=== PATIENT | male | born 1960 | race Caucasian/White ===

== ENCOUNTER 2016-12-03 16:12 | Outpatient (CLI) | payer BC ==
--- NOTE | 2016-12-04 09:43 | XRAY Report ---
TWO-VIEW CHEST: 12/03/2016 CLINICAL INDICATION: Abnormal PPD. FINDINGS: Frontal and lateral views of the chest demonstrate a normal cardiac silhouette. The lungs are clear. No effusion or pneumothorax is present. Mid thoracic compression fractures are incident ally noted. IMPRESSION: NO EVIDENCE OF ACTIVE TUBERCULOSIS. JOB #: [id number] EXT JOB #:[id number]
== END 2016-12-03 16:13 | disposition home or self-care (01) ==
LOC: DI 16:12
DX: R76.11 Nonspecific reaction to tuberculin skin test without active tuberculosis (principal)
CPT/HCPCS: 71020

== ENCOUNTER 2018-06-04 13:10 | Outpatient (CLI) | payer BC ==
--- NOTE | 2018-06-05 01:38 | XRAY Report ---
Reason: BACK PAIN, LUMBAR WITH RADICULOPATHY,HIP JOINT SHEN Procedure Date: 06/04/2018 Accession Number: [id number] / [id number] Procedure: XR - Hips 2V BILAT CPT Code: FULL RESULT: EXAM: BILATERAL HIP RADIOGRAPHY EXAM DATE: 06/04/2018 01:51 PM. CLINICAL HISTORY: BACK PAIN, LUMBAR WITH RADICULOPATHY,HIP JOINT SHEN. COMPARISON: HIP BILAT 09/22/2012 10:46 AM. TECHNIQUE: 2 views each. FINDINGS: Bones: Normal. No fractures or bone lesion. Right Hip: Normal. No dislocation. The hip joint space is preserved. Left Hip: Moderate left hip degenerative joint disease with moderate osteophytes. No dislocation. Mild to moderate bilateral sacroiliac joint sclerosis, left greater than right. Soft Tissues: Unremarkable. IMPRESSION: The right hip appears within normal limits. Moderate left hip degenerative joint disease. See above. [facility]
--- NOTE | 2018-06-05 22:27 | XRAY Report ---
Reason: Back pain, lumbar, with radiculopathy Procedure Date: 06/04/2018 Accession Number: [id number] / [id number] Procedure: XR - Lumbar Spine 2 View CPT Code: FULL RESULT: EXAM: LUMBOSACRAL SPINE RADIOGRAPHY EXAM DATE: 06/04/2018 01:50 PM. CLINICAL HISTORY: Lumbar back pain with radiculopathy. COMPARISONS: MRI LUMBAR SPINE W/O 04/01/2016 8:54 AM. TECHNIQUE: 3 views. FINDINGS: Alignment: Mild left convex curvature centered at L4-L5 measuring approximately 6 degrees. No spondylolisthesis. Bones: Five uqb-htf-ldlbktj lumbar vertebral bodies are present. No fractures or bone lesions. Disks: Severe disk height loss and endplate degenerative change at L1-L2. Mild L5 superior anterior endplate osteophytosis. Mild disk height loss and endplate degenerative change at L5-S1. Facets: Mild facet arthropathy in the lower lumbar spine. Sacroiliac Joints: Unremarkable. Soft Tissues: Normal. The visualized bowel gas pattern is normal. IMPRESSION: 1. Mild left convex curvature centered at L4-L5. 2. Multilevel degenerative disk disease, most Severe at L1-L2, Similar Appearance to Prior MRI. 3. No acute bony abnormality. [facility]
== END 2018-06-04 13:11 | disposition home or self-care (01) ==
LOC: DI 13:10
PROVIDERS: ATTEND Nurse Practitioner
DX: M16.12 Unilateral primary osteoarthritis, left hip (principal); M25.551 Pain in right hip; D17.1 Benign lipomatous neoplasm of skin and subcutaneous tissue of trunk; M51.16 Intervertebral disc disorders with radiculopathy, lumbar region; M43.8X6 Other specified deforming dorsopathies, lumbar region; R10.2 Pelvic and perineal pain
CPT/HCPCS: 72100; 73521

== ENCOUNTER 2018-06-13 12:09 | Outpatient (CLI) | payer BC ==
--- NOTE | 2018-06-13 20:14 | MRI Report ---
Reason: BACK PAIN,LUMBAR WITH RADICULOPATHY,HIP JOINT PAIN Procedure Date: 06/13/2018 Accession Number: [id number] / [id number] Procedure: MRI - Lumbar Spine W/O CPT Code: FULL RESULT: EXAM: MRI LUMBAR SPINE WITHOUT CONTRAST EXAM DATE: 06/13/2018 01:25 PM. CLINICAL HISTORY: Back pain, lumbar with radiculopathy, hip joint pain. COMPARISON: LUMBAR SPINE W/O 04/01/2016 8:54 AM. TECHNIQUE: Multiplanar, multisequence T1-weighted and fluid-sensitive sequences of the lumbar spine from T12 to S1 without contrast. Other: None. FINDINGS: Spinal Canal: The conus terminates at L1-L2. The conus medullaris and cauda equina are unremarkable. Alignment: No scoliosis or spondylolisthesis. Bone Marrow: Five bjm-dzk-qkktwzm lumbar vertebral bodies are assumed. No gross fractures or bone lesions. No bone marrow replacement. Disk Levels/Facets: T12-L1: Unremarkable. L1-L2: Severe disk degeneration. Inferior L1 vertebral body endplate Schmorl's node. Diffuse disk bulge. Mild left foraminal stenosis. Negative for central spinal canal stenosis. L2-L3: Posterior right paracentral 2 mm disk protrusion with mild ventral effacement of the thecal sac. Negative for spinal canal stenosis or foraminal stenosis. Preservation of disk height. Facet joints are within normal limits. L3-L4: Negative for spinal canal stenosis or foraminal stenosis. L4-L5: Central posterior 2 mm disk protrusion. Posterior element hypertrophy. Negative for spinal canal stenosis. The right intervertebral foramen is negative for stenosis. Mild left foraminal stenosis from facet hypertrophy and 2 mm foraminal disk protrusion. L5-S1: Central posterior 2 mm disk protrusion. The left intervertebral foramen is negative for stenosis. Mild right foraminal stenosis from disk degeneration and foraminal disk bulge which is unchanged as compared to the MRI 04/01/2016. Severe right L5-S1 disk degeneration. Facet joints are within normal limits. Musculature: Normal. No edema or fatty atrophy. Other: The partially visualized retroperitoneum is unremarkable. IMPRESSION: 1. Inferior L1 vertebral body endplate Schmorl's node with marrow edema is new as compared to the MRI lumbar spine 04/01/2016. Severe L1-L2 disk degeneration. 2. Negative for central spinal canal stenosis. 3. Mild right L5-S1 foraminal stenosis from disk degeneration and 2 mm foraminal disk bulge, which contacts the inferior aspect of the exiting the right L5 nerve root without impingement. No change as compared to the MRI lumbar spine 03/24/2016. 4. Mild left foraminal stenosis L4-L5 and mild left foraminal stenosis L1-L2. Comment: The following findings are so common in adults without low back pain that while we report their presence, they must be interpreted with caution and in the context of the clinical situation. (Reference Idaliak et al, Spine 2001) Prevalence of findings in patients without low back pain: Disk degeneration (any evidence): 92% Disk desiccation/T2 signal loss: 83% Disk height loss: 56% Disk bulge: 64% Disk protrusion: 32% Annular tear/high intensity zone: 38% RAD[facility]
== END 2018-06-13 12:10 | disposition home or self-care (01) ==
LOC: DI 12:09
PROVIDERS: ATTEND Nurse Practitioner
DX: M51.26 Other intervertebral disc displacement, lumbar region (principal); M51.27 Other intervertebral disc displacement, lumbosacral region; M51.46 Schmorl's nodes, lumbar region; M47.9 Spondylosis, unspecified; M51.37 Other intervertebral disc degeneration, lumbosacral region; M48.061 Spinal stenosis, lumbar region without neurogenic claudication; M48.07 Spinal stenosis, lumbosacral region; M51.36 Other intervertebral disc degeneration, lumbar region
CPT/HCPCS: 72148

== ENCOUNTER 2018-06-20 12:13 | Outpatient (CLI) | payer BC ==
--- NOTE | 2018-06-21 09:09 | MRI Report ---
Reason: BACK PAIN,LUMBAR WITH RADICULOPATHY,HIP JOIN PAIN, Procedure Date: 06/20/2018 Accession Number: [id number] / [id number] Procedure: MRI - Hip LT W/O CPT Code: FULL RESULT: EXAM: LEFT HIP MRI WITHOUT CONTRAST EXAM DATE: 06/20/2018 01:01 PM. CLINICAL HISTORY: BACK PAIN,LUMBAR WITH RADICULOPATHY,HIP JOIN PAIN. COMPARISON: Left hip radiographs 06/04/2018. TECHNIQUE: Multiplanar, multisequence T1-weighted and fluid-sensitive, small vlmtm-mj-bvsw sequences of the hip and large xcxzw-wf-jsah sequences of the pelvis without contrast. Other: None. FINDINGS: Bones: No fractures. No osseous lesions. No evidence of avascular necrosis or femoral neck stress fracture. Left Hip: No acetabular retroversion. Decreased femoral head-neck offset bilaterally. Small left hip effusion. No intra-articular bodies are visualized. Full thickness cartilage loss over a broad area of the central femoral head and medial acetabulum with underlying subchondral edema and cystic change at the medial acetabulum. Marginal osteophyte formation at the femoral head. Limited evaluation of the acetabular labrum on this nonarthrographic examination. No para labral cyst. Ligamentum teres is not well visualized. Other Joints: There is bilateral sacroiliac joint osteoarthritis. No erosions or subchondral edema. Mild right hip osteoarthritis, with small marginal osteophytes but no subchondral edema or sclerosis. Musculature: No edema or fatty atrophy. The gluteus medius and minimus tendons are normal. The visualized hamstring tendons are normal. The ischiofemoral space is normal. Pelvic Cavity: The visualized viscera are unremarkable. No lymphadenopathy. No free fluid in the pelvis. Other: The visualized sciatic nerves are unremarkable. No bursitis. The subcutaneous tissues are unremarkable. IMPRESSION: 1. Severe left hip osteoarthritis, with severe axial joint space loss, subchondral edema and cystic change at the medial acetabulum, and marginal osteophyte formation. Small left hip effusion. 2. Mild right hip osteoarthritis and bilateral sacroiliac joint osteoarthritis. [facility] MUSCULOSKELETAL RADIOLOGY SECTION
== END 2018-06-20 12:14 | disposition home or self-care (01) ==
LOC: DI 12:13
PROVIDERS: ATTEND Nurse Practitioner
DX: M16.0 Bilateral primary osteoarthritis of hip (principal); M47.818 Spondylosis without myelopathy or radiculopathy, sacral and sacrococcygeal region; M54.16 Radiculopathy, lumbar region; D17.1 Benign lipomatous neoplasm of skin and subcutaneous tissue of trunk

== ENCOUNTER 2018-08-09 12:30 | Outpatient (CLI) | payer OTHER, BC ==
[2018-08-09] MEDS ORDERED: IOTHALAMATE MEGLUMINE 50 ML VIAL ONE (12:47)
[2018-08-09] MEDS ORDERED: BUFFERED LIDOCAINE 10 ML SYRINGE ONE (12:47)
[2018-08-09] MEDS ORDERED: BUFFERED LIDOCAINE 10 ML SYRINGE IU ONE ×2 (13:44)
[2018-08-09] MEDS ORDERED: ROPIVACAINE 0.2% PF 20 ML AMPULE SUBQ ONE ×2 (13:44)
[2018-08-09] MEDS ORDERED: TRIAMCINOLONE 40 MG/ML VIAL IM ONE (13:44)
[2018-08-09] MEDS ORDERED: IOTHALAMATE MEGLUMINE 50 ML VIAL IVP ONE ×2 (13:44)
--- NOTE | 2018-08-09 15:21 | XRAY Report ---
Reason: HIP JOINT PAIN, LEFT Procedure Date: 08/09/2018 Accession Number: [id number] / [id number] Procedure: FL - Inj/Aspiration Major Joint CPT Code: FULL RESULT: EXAM: LEFT HIP STEROID INJECTION WITH FLUOROSCOPIC GUIDANCE EXAM DATE: 08/09/2018 01:40 PM. CLINICAL HISTORY: Hip joint pain, left. COMPARISON: HIP BILAT 09/22/2012 10:46 AM. TECHNIQUE: The risks, benefits, and alternatives of the procedure were discussed with the patient. All questions were answered. Written and verbal consent were obtained. The hip joint was marked under fluoroscopy and prepped and draped in a sterile manner. Local anesthesia was performed with 1% lidocaine. A 22-gauge needle was then inserted into the hip joint. Positioning was tested with a small quantity of contrast, approximately 2 mL. Afterwards, 6 mL of a solution containing 0.05% ropivacaine and 40 mg Kenalog was then injected. The needle was removed without immediate complication. Other: None. Fluoroscopy Time: 0.25 minutes. Number of Images: 19. FINDINGS: Bones and Joints: No fracture or subluxation. Injection: Fluoroscopic images demonstrate needle placement and contrast in the hip joint. IMPRESSION: Successful fluoroscopically guided steroid injection of the hip. [facility]
== END 2018-08-09 12:31 | disposition home or self-care (01) ==
LOC: DI 12:30
PROVIDERS: ATTEND Orthopaedic Surgery
DX: M25.552 Pain in left hip (principal)
CPT/HCPCS: 20610; Q9961

== ENCOUNTER 2019-07-02 10:59 | Outpatient (CLI) | payer BC ==
--- NOTE | 2019-07-02 12:44 | Ultrasound Report ---
Reason: ABDOMINAL AORTIC ANEURYSM Procedure Date: 07/02/2019 Accession Number: [id number] / [id number] Procedure: US - Retroperitoneal Limited CPT Code: Final Report FULL RESULT: EXAM: AORTIC DOPPLER ULTRASOUND EXAM DATE: 07/02/2019 11:00 AM. CLINICAL HISTORY: Abdominal aortic aneurysm incidentally noted on MR lumbar spine. COMPARISON: LUMBAR SPINE W/O 06/13/2018 12:40 PM. TECHNIQUE: Real-time sonographic imaging of retroperitoneal vascular structures, including color-flow, Doppler flow and spectral analysis was performed by the r d manager. Multiple customer care representative static images were saved for review. FINDINGS: Aorta: Evaluation of the abdominal aorta was limited by patient body habitus and overlying bowel gas. There is fusiform aneurysmal dilatation of the distal abdominal aorta measuring 3.0 x 2.8 cm in the transverse plane. There is heterogeneous material within the aneurysm which may represent thrombus or dissection flap. Aorta: Proximal: Sagittal AP 2.4 cm. Mid: Transverse 1.9 x 1.9 cm. Distal: Transverse 3.0 x 2.8 cm. Plaque visualized: Yes. Iliac Vessels: Not visualized due to overlying bowel gas and patient body habitus. Other: None. IMPRESSION: 1. Fusiform aneurysmal dilatation of the distal abdominal aorta measuring 3.0 x 2.8 cm in the transverse plane. There is possible thrombus or dissection flap within the aneurysm. Evaluation is limited by patient body habitus and overlying bowel gas. Recommend further evaluation with CT angiogram of the abdominal aorta. 2. The bilateral iliac arteries are not visualized due to overlying bowel gas and patient body habitus. RAD[facility]
== END 2019-07-02 11:00 | disposition home or self-care (01) ==
LOC: DI 10:59
PROVIDERS: ATTEND Nurse Practitioner
DX: I71.4 Abdominal aortic aneurysm, without rupture (principal)
CPT/HCPCS: 76775

== ENCOUNTER 2019-07-13 10:42 | Outpatient (CLI) | payer BC ==
[2019-07-13 11:23] LABS: ALBUMIN/GLOBULIN RATIO 1.4 (1.0-2.2); BILIRUBIN,TOTAL 0.9 mg/dL (0.2-1.0); CALCIUM 8.7 mg/dL (8.5-10.3); TOTAL PROTEIN 6.9 g/dL (6.7-8.2)
[2019-07-13] MEDS ORDERED: IOVERSOL 320 100 ML VIAL IVP ONE ×2 (11:30→13:46)
--- NOTE | 2019-07-14 10:07 | CT Report ---
Reason: ABDOMINAL AORTIC ANEURYSM Procedure Date: 07/13/2019 Accession Number: [id number] / [id number] Procedure: CT - ANGIO ABDOMEN/PELVIS W CPT Code: Final Report FULL RESULT: EXAM: CT ANGIOGRAM ABDOMEN AND PELVIS WITH CONTRAST EXAM DATE: 07/13/2019 11:55 AM. CLINICAL HISTORY: Abdominal aortic aneurysm. COMPARISONS: ULTRASOUND RETROPERITONEAL LIMITED 07/02/2019 11:00 AM. MRI LUMBAR SPINE W/O 06/13/2018 12:40 PM. TECHNIQUE: Routine helical CT angiogram imaging was performed through the abdomen and pelvis in the arterial phase. IV contrast: 120 mL Optiray 320. Enteric contrast: No. Reconstructions: Coronal, sagittal, and 3D MIP reconstructions. In accordance with CT protocol optimization, one or more of the following dose reduction techniques were utilized for this exam: automated exposure control, adjustment of mA and/or KV based on patient size, or use of iterative reconstructive technique. FINDINGS: Vasculature: There is fusiform aneurysmal dilatation of the infrarenal abdominal aorta measuring up to 3.0 x 2.5 cm in the transverse plane (series 4 image 107). There is a partially calcified dissection flap anteriorly. The focal dilatation measures approximately 3.7 cm in craniocaudal dimension (series 10 image 86). The abdominal aorta and iliac arteries are otherwise normal in caliber. There is moderate atherosclerotic calcification of the abdominal aorta. There is mild atherosclerotic calcification of the bilateral common iliac arteries. There is mild atherosclerotic calcification near the origins of the celiac axis and superior mesenteric artery, without significant luminal narrowing. The inferior mesenteric artery is patent. There are 2 right renal arteries and 3 left renal arteries. Lung Bases: Normal. Abdominal Solid Organs: There is diffuse low-attenuation of the liver. No focal hepatic mass identified. There is a right adrenal nodule measuring 2.7 x 1.8 cm (series 4 image 56). Density is near 0 HU. The left adrenal is unremarkable. There are small calcified gallstones within the gallbladder. No CT evidence of acute cholecystitis. The spleen, pancreas, and kidneys are normal in size and demonstrate no masses or abnormal enhancement. Peritoneal Cavity: No free fluid, free air, or acute inflammatory process. No dilated loops of bowel or abnormal colonic stool burden. There is minimal diverticulosis of the descending and sigmoid colon. No evidence of acute diverticulitis. The appendix is well visualized and normal. Pelvic Organs: Partially obscured by streak artifact from left hip arthroplasty hardware. The bladder and visualized pelvic organs are within normal limits. Bones: Left hip arthroplasty hardware is partially visualized. No acute osseous abnormality or bone lesion. Moderate anterior wedge compression deformity of the T8 vertebral body appears unchanged compared to prior 2 view chest radiographs from 12/03/2016. There are mild to moderate multilevel degenerative changes of the lower thoracic and lumbar spine. Other: None. IMPRESSION: 1. There is fusiform aneurysmal dilatation of the infrarenal abdominal aorta measuring up to 3.0 cm in diameter. A partially calcified dissection flap is present. 2. Diffuse hepatic steatosis. 3. Right adrenal nodule measuring up to 2.7 cm with features consistent with a benign adenoma. No imaging follow-up is recommended per consensus recommendations based on imaging criteria. 4. Minimal diverticulosis of the descending and sigmoid colon without evidence of acute diverticulitis. 5. Cholelithiasis. No CT evidence of acute cholecystitis. [facility]
== END 2019-07-13 10:43 | disposition home or self-care (01) ==
LOC: DI 10:42
PROVIDERS: ATTEND Nurse Practitioner
DX: I71.4 Abdominal aortic aneurysm, without rupture (principal); K76.0 Fatty (change of) liver, not elsewhere classified; E27.9 Disorder of adrenal gland, unspecified; K57.30 Diverticulosis of large intestine without perforation or abscess without bleeding; K80.20 Calculus of gallbladder without cholecystitis without obstruction; R73.9 Hyperglycemia, unspecified
CPT/HCPCS: 36415; 74174; 80053; Q9967

== ENCOUNTER 2019-09-28 09:57 | Outpatient (CLI) | payer BC ==
--- NOTE | 2019-09-28 11:29 | XRAY Report ---
PROCEDURE: Chest 2 View X-Ray INDICATIONS: EXERTIONAL SHORT OF BREATH TECHNIQUE: 2 view(s) of the chest. COMPARISON: Chest x-ray examination dated 12.03.16 FINDINGS: Surgical changes and devices: None. Lungs and pleura: No pleural effusions or pneumothorax. Lungs are clear. Mediastinum: Mediastinal contours are normal. Heart size is enlarged. Bones and chest wall: No suspicious bony abnormalities. Soft tissues appear unremarkable. IMPRESSION: 1. Cardiomegaly. 2. No acute process. Reviewed by: Mihai Emanuel MD on 09/28/2019 11:28 AM PDT Approved by: Mihai Emanuel MD on 09/28/2019 11:28 AM PDT Station ID: [id number]
[2019-09-28 11:40] LABS: ALBUMIN 3.8 g/dL (3.2-5.5); ALBUMIN/GLOBULIN RATIO 1.3 (1.0-2.2); BILIRUBIN,TOTAL 0.7 mg/dL (0.2-1.0); CALCIUM 8.9 mg/dL (8.5-10.3); CREATININE 0.9 mg/dL (0.6-1.2); TOTAL PROTEIN 6.8 g/dL (6.7-8.2)
--- NOTE | 2019-09-28 11:41 | Ultrasound Report ---
PROCEDURE: Duplex Ext Veins Left INDICATIONS: SUPERFICIAL THROMBOPHLEBITIS TECHNIQUE: Real-time imaging, as well as color and pulse Doppler interrogation, were performed of the lower extr emity deep veins from the inguinal ligament to the popliteal fossa. COMPARISON: None. FINDINGS: The deep veins are normally compressible, and free of intraluminal thrombus. Color and pu lse Doppler demonstrate normal phasic intraluminal flow. There is normal augmentation response to di stal compression maneuver. IMPRESSION: No evidence of left lower extremity superficial nor deep venous thrombosis. No fluid col lection. Reviewed by: Mihai Emanuel MD on 09/28/2019 11:39 AM PDT Approved by: Mihai Emanuel MD on 09/28/2019 11:39 AM PDT Station ID: [id number]
== END 2019-09-28 09:58 | disposition home or self-care (01) ==
LOC: DI 09:57
PROVIDERS: ATTEND Family Medicine
DX: I80.9 Phlebitis and thrombophlebitis of unspecified site (principal); I51.7 Cardiomegaly; R29.90 Unspecified symptoms and signs involving the nervous system; R73.9 Hyperglycemia, unspecified
CPT/HCPCS: 36415; 71046; 80053

== ENCOUNTER 2019-09-28 15:52 | Outpatient (CLI) | payer BC ==
[2019-09-28] MEDS ORDERED: GADOBUTROL 15 MMOL/15 ML VIAL ONE (16:41)
== END 2019-09-28 15:53 | disposition home or self-care (01) ==
LOC: DI 15:52
PROVIDERS: ATTEND Nurse Practitioner
DX: Z53.9 Procedure and treatment not carried out, unspecified reason (principal)

== ENCOUNTER 2019-10-30 10:47 | Outpatient (CLI) | payer BC ==
--- NOTE | 2019-10-30 12:23 | DEXA Report ---
Reason: OSTEOPOROSIS Procedure Date: 10/30/2019 Accession Number: [id number] / [id number] Procedure: DEX - Dexa Spine and/or Hip CPT Code: Final Report FULL RESULT: PROCEDURE: Dexa Spine and/or Hip INDICATIONS: OSTEOPOROSIS TECHNIQUE: Dual energy x-ray absorptiometry (DXA) was performed on a [employer]. Regions measured are the AP Spine, femoral neck, and if needed forearm. COMPARISON: None. FINDINGS: Lumbar Spine: Bone Mineral Density 1.31 g/cm/cm,T score 1.3, normal Left Hip: Bone Mineral Density 1.191 g/cm/cm,T score 0.6, normal Left Femoral Neck: Bone Mineral Density 1.037 g/cm/cm, T score -0.3, normal (T score greater or equal to -1.0: NORMAL) (T score from -1.1 to -2.4: OSTEOPENIA) (T score less than or equal to -2.5 to: OSTEOPOROSIS) Impression: Normal bone density. Patients with diagnosis of osteoporosis or osteopenia should have regular bone mineral density assessment. For those eligible for Medicare, routine testing is allowed once every 2 years. Testing frequency can be increased for patients who have rapidly progressing disease or for those who are receiving medical therapy to restore bone mass. Reviewed by: Cristina Barnard MD, PhD on 10/30/2019 12:22 PM PDT Approved by: Cristina Barnard MD, PhD on 10/30/2019 12:22 PM PDT Station ID: [id number]
== END 2019-10-30 10:48 | disposition home or self-care (01) ==
LOC: DI 10:47
PROVIDERS: ATTEND Family Medicine
DX: M81.0 Age-related osteoporosis without current pathological fracture (principal)
CPT/HCPCS: 77080

== ENCOUNTER 2020-01-20 16:27 | Outpatient (CLI) | payer BC ==
--- NOTE | 2020-01-20 19:52 | Ultrasound Report ---
PROCEDURE: Testicle INDICATIONS: TESTICULAR PAIN TECHNIQUE: Real-time scanning was performed of the scrotum and testicles, with image documentation. Color and p ulse Doppler interrogation was performed of both testicles. COMPARISON: CT abdomen and pelvis 01/03/2020. Testicular ultrasound 10/27/2011. FINDINGS: Right: Testicle is normal in size at 3.6 x 2.8 x 2.1 cm, and homogenous in echotexture. Small testic ular cyst measuring 0.3 cm, unchanged since 2011. Epididymis is normal in overall size and morphology . Small cyst in the epididymal head measuring 0.8 cm, similar to 2012. Trace hydrocele. No varicocel es. Overlying scrotal skin is normal in thickness. Left: Testicle is normal in size at 4.1 x 2.8 x 2.1 cm, and homogeneous in echotexture. Epididymis is normal in overall size and morphology. No hydrocele or varicoceles. Overlying scrotal skin is no rmal in thickness. Doppler: Color and pulse Doppler demonstrate normal and symmetric arterial flow in both testicles. IMPRESSION: 1. No hyperemia to suggest epididymoorchitis. No absence of blood flow to suggest testicular torsion. 2. No testicular mass. 3. Trace right hydrocele. 4. Small right testicle and epididymal benign cysts are similar to 2012. Reviewed by: Chidi Lin MD on 01/20/2020 7:50 PM PDT Approved by: Chidi Lin MD on 01/20/2020 7:50 PM PDT Station ID: [id number]
== END 2020-01-20 16:28 | disposition home or self-care (01) ==
LOC: DI 16:27
PROVIDERS: ATTEND Nurse Practitioner Family
DX: N43.3 Hydrocele, unspecified (principal); N44.2 Benign cyst of testis; N50.3 Cyst of epididymis
CPT/HCPCS: 76870

== ENCOUNTER 2020-01-30 10:37 | Outpatient (CLI) | payer OTHER, BC ==
--- NOTE | 2020-01-30 16:49 | XRAY Report ---
PROCEDURE: Ankle 3 View RT INDICATIONS: RIGHT ANKLE SPRAIN TECHNIQUE: 3 views of the ankle were acquired. COMPARISON: None FINDINGS: Bones: No fractures or dislocations. Ankle mortise is normally aligned. No suspicious bony lesions . Mild tricompartmental periarticular osteophyte formation. A screw within the cuboid is present. Soft tissues: No tibiotalar joint effusion. Achilles tendon appears normal. IMPRESSION: Osteoarthritis. No acute fracture. No osseous lesion. If symptoms and/or clinical suspic ion for pathology continue, further assessment with repeat plain films, or advanced imaging (e.g., CT , MRI, or bone scan) is recommended for further assessment. Reviewed by: Mihai Emanuel MD on 01/30/2020 4:47 PM PDT Approved by: Mihai Emanuel MD on 01/30/2020 4:47 PM PDT Station ID: [id number]
== END 2020-01-30 23:59 ==
LOC: DI.WCP 10:37
PROVIDERS: ATTEND Physician Assistant Medical
DX: M19.071 Primary osteoarthritis, right ankle and foot (principal)

== ENCOUNTER 2020-06-24 08:00 | Outpatient (CLI) | payer BC ==
[2020-06-24 17:54] LABS: BASOPHILS # (AUTO) 0.1 10^3/uL (0.0-0.1); BASOPHILS % (AUTO) 0.7 %; EOSINOPHILS # (AUTO) 0.2 10^3/uL (0.0-0.7); EOSINOPHILS % (AUTO) 2.1 %; HCT - HEMATOCRIT 48.7 % (42.0-52.0); HGB - HEMOGLOBIN 15.5 g/dL (14.0-18.0); LYMPHOCYTES # (AUTO) 1.1 10^3/uL (1.5-3.5); LYMPHOCYTES % (AUTO) 15.7 %; MEAN CORPUSCULAR HEMOGLOBIN 30.9 pg (27.0-31.0); MEAN CORPUSCULAR HGB CONC 31.8 g/dL (32.0-36.0); MEAN PLATELET VOLUME 10.8 fL (7.4-11.4); MONOCYTES # (AUTO) 0.7 10^3/uL (0.0-1.0); MONOCYTES % (AUTO) 9.2 %; NEUTROPHILS # (AUTO) 5.2 10^3/uL (1.5-6.6); PLT - PLATELET COUNT 233 10^3/uL (130-450); RED BLOOD COUNT 5.02 10^6/uL (4.70-6.10); RED CELL DISTRIBUTION WIDTH 14.2 % (12.0-15.0); WHITE BLOOD COUNT 7.2 x10^3/uL (4.8-10.8)
[2020-06-24 18:09] LABS: ALBUMIN 4.3 g/dL (3.2-5.5); ALBUMIN/GLOBULIN RATIO 1.5 (1.0-2.2); ALKALINE PHOSPHATASE 57 IU/L (42-121); ALT ALANINE AMINOTRANSFERASE 33 IU/L (10-60); AST ASPARTATE AMINOTRANSFERASE 22 IU/L (10-42); BUN - BLOOD UREA NITROGEN 15 mg/dL (6-20); CALCIUM 8.9 mg/dL (8.5-10.3); CARBON DIOXIDE - CO2 30 mmol/L (21-32); CHLORIDE 102 mmol/L (101-111); CHOL/HDL RATIO 3.6 (<5.0); CHOLESTEROL 157 mg/dL; CREATININE 0.9 mg/dL (0.6-1.2); GFR - MDRD 86 (>89); GLUCOSE 162 mg/dL (70-100); HDL CHOLESTEROL 44 mg/dL; LDL CHOLESTEROL,CALCULATED 93 mg/dL; LDL/HDL RATIO 2.1 (<3.6); POTASSIUM 4.1 mmol/L (3.5-5.0); SODIUM 140 mmol/L (135-145); TOTAL PROTEIN 7.1 g/dL (6.7-8.2); TRIGLYCERIDES 99 mg/dL; VLDL CHOLESTEROL 20 mg/dL
[2020-06-24 18:19] LABS: THYROID STIMULATING HORMONE 1.45 uIU/mL (0.34-5.60)
[2020-06-24 19:50] LABS: ESTIMATED AVERAGE GLUCOSE 143 mg/dL (70-100); HEMOGLOBIN A1c% 6.6 % (4.27-6.07)
== END 2020-06-24 23:59 | disposition home or self-care (01) ==
LOC: LAB.WCP 08:00
PROVIDERS: ATTEND Nurse Practitioner
DX: D64.9 Anemia, unspecified (principal); I48.91 Unspecified atrial fibrillation; R73.9 Hyperglycemia, unspecified; R03.0 Elevated blood-pressure reading, without diagnosis of hypertension
CPT/HCPCS: 36415; 80053; 80061; 83036; 83721; 84443; 85025

== ENCOUNTER 2020-08-08 12:00 | Outpatient (CLI) | payer OTHER, BC ==
--- NOTE | 2020-08-08 17:06 | CT Report ---
PROCEDURE: CHEST WO INDICATIONS: LUNG NODULE TECHNIQUE: Noncontrast 5 mm thick sections acquired from the pulmonary apices to the posterior costophrenic angl es. 7 mm thick coronal and sagittal MIP reformats were then acquired. For radiation dose reduction, the following was used: automated exposure control, adjustment of mA and/or kV according to patient size. COMPARISON: CT abdomen and pelvis 01/03/2020 FINDINGS: Image quality: Excellent. Lungs and pleura: Approximately 3 mm right lower lobe pulmonary nodule is unchanged (series 4 image 2 05). An additional tiny pulmonary nodule in the left lower lobe on series 4 image 2:30 measuring appr oximately 3 mm is also unchanged. No additional pulmonary nodule or mass. No pleural effusions or pne umothorax. Central and peripheral airways are patent and normal in caliber. Pleural spaces are fatmata r. Mediastinum: Normal heart size. No pericardial effusion. Partial enlarged mediastinal or hilar lymph node. Coronary calcifications. Normal caliber thoracic aorta and main pulmonary trunk. Aortic atheros clerosis. Bones and chest wall: No suspicious bony lesions. No vertebral body compression fractures. No axil olivier or supraclavicular adenopathy by size criteria. The thyroid is normal in size. Abdomen: Unchanged appearance of right adrenal adenoma. The included upper abdominal visceral struct ures are otherwise unremarkable. IMPRESSION: Unchanged small 3 mm pulmonary nodules. No additional follow-up needed. Reviewed by: Jozef Glasgow MD on 08/08/2020 5:05 PM PDT Approved by: Jozef Glasgow MD on 08/08/2020 5:05 PM PDT Station ID: [id number]
== END 2020-08-08 12:01 | disposition home or self-care (01) ==
LOC: DI 12:00
PROVIDERS: ATTEND Nurse Practitioner Family
DX: R91.8 Other nonspecific abnormal finding of lung field (principal)

== ENCOUNTER 2020-11-29 08:00 | Outpatient (CLI) | payer BC ==
[2020-11-29 18:40] LABS: CALCIUM 9.2 mg/dL (8.5-10.3); CREATININE 0.8 mg/dL (0.6-1.2); POTASSIUM 4.3 mmol/L (3.5-5.0)
== END 2020-11-29 23:59 | disposition home or self-care (01) ==
LOC: LAB.WCP 08:00
PROVIDERS: ATTEND Family Medicine
DX: R06.09 Other forms of dyspnea (principal); I48.91 Unspecified atrial fibrillation
CPT/HCPCS: 36415; 80048; 83880; 84484

== ENCOUNTER 2021-07-05 12:41 | Outpatient (CLI) | payer BC ==
[2021-07-05 16:55] LABS: BASOPHILS # (AUTO) 0.1 10^3/uL (0.0-0.1); BASOPHILS % (AUTO) 0.9 %; EOSINOPHILS # (AUTO) 0.1 10^3/uL (0.0-0.7); EOSINOPHILS % (AUTO) 1.8 %; HCT - HEMATOCRIT 45.7 % (42.0-52.0); HGB - HEMOGLOBIN 15.5 g/dL (14.0-18.0); LYMPHOCYTES # (AUTO) 1.4 10^3/uL (1.5-3.5); LYMPHOCYTES % (AUTO) 21.3 %; MEAN CORPUSCULAR HEMOGLOBIN 30.9 pg (27.0-31.0); MEAN CORPUSCULAR HGB CONC 33.9 g/dL (32.0-36.0); MEAN CORPUSCULAR VOLUME 91.2 fL (80.0-94.0); MEAN PLATELET VOLUME 10.8 fL (7.4-11.4); MONOCYTES # (AUTO) 0.6 10^3/uL (0.0-1.0); MONOCYTES % (AUTO) 9.5 %; NEUTROPHILS # (AUTO) 4.3 10^3/uL (1.5-6.6); NEUTROPHILS % (AUTO) 66.3 %; PLT - PLATELET COUNT 236 10^3/uL (130-450); RED BLOOD COUNT 5.01 10^6/uL (4.70-6.10); RED CELL DISTRIBUTION WIDTH 13.2 % (12.0-15.0); WHITE BLOOD COUNT 6.5 x10^3/uL (4.8-10.8)
[2021-07-05 17:11] LABS: MICROALBUM/CREATININE RATIO,UR 3.3 ug/mg (<30.0); MICROALBUMIN,URINE 1.2 mg/dL (0-300.0)
[2021-07-05 17:14] LABS: CHOL/HDL RATIO 3.4 (<5.0); CHOLESTEROL 134 mg/dL; HDL CHOLESTEROL 40 mg/dL; LDL CHOLESTEROL,CALCULATED 73 mg/dL; LDL/HDL RATIO 1.8 (<3.6); TRIGLYCERIDES 106 mg/dL; VLDL CHOLESTEROL 21 mg/dL
[2021-07-05 17:20] LABS: T4 (THYROXINE) 6.47 ug/dL (6.09-12.23)
[2021-07-05 17:24] LABS: THYROID STIMULATING HORMONE 1.23 uIU/mL (0.34-5.60)
[2021-07-05 21:46] LABS: ESTIMATED AVERAGE GLUCOSE 163 mg/dL (70-100); HEMOGLOBIN A1c% 7.3 % (4.27-6.07)
== END 2021-07-05 12:42 | disposition home or self-care (01) ==
LOC: LAB.N 12:41
PROVIDERS: ATTEND Family Medicine
DX: E11.9 Type 2 diabetes mellitus without complications (principal); Z12.5 Encounter for screening for malignant neoplasm of prostate
CPT/HCPCS: 36415; 80061; 82043; 82570; 83036; 83721; 84153; 84436; 84443; 85025

== ENCOUNTER 2021-12-13 14:53 | Outpatient (CLI) | payer BC ==
--- NOTE | 2021-12-13 16:22 | XRAY Report ---
PROCEDURE: Shoulder 3 View LT INDICATIONS: STRAIN OF UNSPECIFIED MUSCLE,FASCIA AND TENDON AT TECHNIQUE: 3 views of the shoulder were acquired. COMPARISON: None. FINDINGS: Bones: No acute fractures or dislocations. No suspicious bony lesions. Visualized ribs appear inta ct. Mild degenerative changes of the acromioclavicular joint. Minimal spurring of the inferior gleno id. Soft tissues: A nonspecific 2.3 cm oval calcification is seen projecting over the upper arm along the superficial margin of the deltoid muscle. Given the superficial location, this may represent an inje ction granuloma versus the sequela of prior soft tissue trauma. IMPRESSION: No acute osseous abnormality. Nonspecific soft tissue calcification along the superficial margin of t he distal deltoid muscle may represent an injection granuloma or the sequela of prior trauma versus l ess likely a calcified soft tissue mass. Consider radiographic follow-up in 3-6 months. Reviewed by: Gerardo Scanlon MD on 12/13/2021 3:21 PM JORDON Approved by: Gerardo Scanlon MD on 12/13/2021 3:21 PM JORDON [id number]
== END 2021-12-13 14:54 | disposition home or self-care (01) ==
LOC: DI 14:53
PROVIDERS: ATTEND Physician Assistant
DX: S46.912A Strain of unspecified muscle, fascia and tendon at shoulder and upper arm level, left arm, initial encounter (principal)

== ENCOUNTER 2022-01-31 15:48 | Outpatient (CLI) | payer BC ==
[2022-01-31 19:14] LABS: ALBUMIN 4.1 g/dL (3.2-5.5); ALBUMIN/GLOBULIN RATIO 1.5 (1.0-2.2); ALKALINE PHOSPHATASE 57 IU/L (42-121); ALT ALANINE AMINOTRANSFERASE 37 IU/L (10-60); AST ASPARTATE AMINOTRANSFERASE 24 IU/L (10-42); BILIRUBIN,TOTAL 1.2 mg/dL (0.2-1.0); BUN - BLOOD UREA NITROGEN 15 mg/dL (6-20); CARBON DIOXIDE - CO2 28 mmol/L (21-32); CHLORIDE 100 mmol/L (101-111); CHOL/HDL RATIO 3.4 (<5.0); CHOLESTEROL 136 mg/dL; CREATININE 0.8 mg/dL (0.6-1.2); GFR - MDRD 98 (>89); GLUCOSE 144 mg/dL (70-100); HDL CHOLESTEROL 40 mg/dL; LDL CHOLESTEROL,CALCULATED 73 mg/dL; LDL/HDL RATIO 1.8 (<3.6); POTASSIUM 3.9 mmol/L (3.5-5.0); SODIUM 138 mmol/L (135-145); TOTAL PROTEIN 6.9 g/dL (6.7-8.2); TRIGLYCERIDES 116 mg/dL; VLDL CHOLESTEROL 23 mg/dL
[2022-01-31 19:25] LABS: THYROID STIMULATING HORMONE 1.05 uIU/mL (0.34-5.60)
[2022-02-01 12:06] LABS: ESTIMATED AVERAGE GLUCOSE 171 mg/dL (70-100); HEMOGLOBIN A1c% 7.6 % (4.27-6.07)
== END 2022-01-31 15:49 | disposition home or self-care (01) ==
LOC: LAB.N 15:48
PROVIDERS: ATTEND Physician Assistant Medical
DX: E11.9 Type 2 diabetes mellitus without complications (principal)
CPT/HCPCS: 36415; 80053; 80061; 83036; 83721; 84443

== ENCOUNTER 2022-04-30 08:00 | Outpatient (CLI) | payer BC ==
--- NOTE | 2022-05-01 10:31 | XRAY Report ---
PROCEDURE: Cervical Spine Complete INDICATIONS: NECK PAIN TECHNIQUE: 7 view(s) of the cervical spine were acquired. COMPARISON: None. FINDINGS: Mild to moderate multifactorial degenerative changes throughout the cervical spine with dis c height loss and facet hypertrophy and uncovertebral hypertrophy to varying degrees. Findings most p ronounced at C5 and C5 and C5-C6. Oblique views demonstrate mild osseous neural foraminal narrowing a t C4 to C5, C5-C6, and C6-C7. IMPRESSION: Mild to moderate multilevel multifactorial degenerative changes worst from C4-C5 through C6- C7. Reviewed by: Jozef Glasgow MD on 05/01/2022 10:30 AM PST Approved by: Jozef Glasgow MD on 05/01/2022 10:30 AM PST Station ID: [id number]
== END 2022-04-30 08:01 | disposition home or self-care (01) ==
LOC: DI.WOS 08:00
PROVIDERS: ATTEND Orthopaedic Surgery
DX: M47.812 Spondylosis without myelopathy or radiculopathy, cervical region (principal)

== ENCOUNTER 2023-01-08 14:27 | Outpatient (CLI) | payer BC ==
[2023-01-08 17:52] LABS: BASOPHILS # (AUTO) 0.1 10^3/uL (0.0-0.1); BASOPHILS % (AUTO) 0.8 %; EOSINOPHILS # (AUTO) 0.1 10^3/uL (0.0-0.7); EOSINOPHILS % (AUTO) 1.4 %; HGB - HEMOGLOBIN 16.3 g/dL (14.0-18.0); LYMPHOCYTES # (AUTO) 1.7 10^3/uL (1.5-3.5); LYMPHOCYTES % (AUTO) 22.1 %; MEAN CORPUSCULAR HEMOGLOBIN 29.5 pg (27.0-31.0); MEAN CORPUSCULAR VOLUME 92.4 fL (80.0-94.0); MEAN PLATELET VOLUME 11.4 fL (7.4-11.4); MONOCYTES # (AUTO) 0.6 10^3/uL (0.0-1.0); MONOCYTES % (AUTO) 7.9 %; NEUTROPHILS # (AUTO) 5.3 10^3/uL (1.5-6.6); NEUTROPHILS % (AUTO) 67.5 %; PLT - PLATELET COUNT 241 10^3/uL (130-450); RED BLOOD COUNT 5.52 10^6/uL (4.70-6.10); RED CELL DISTRIBUTION WIDTH 12.8 % (12.0-15.0); WHITE BLOOD COUNT 7.9 x10^3/uL (4.8-10.8)
[2023-01-08 18:23] LABS: THYROID STIMULATING HORMONE 0.93 uIU/mL (0.34-5.60)
[2023-01-08 18:24] LABS: ALBUMIN 4.3 g/dL (3.2-5.5); ALBUMIN/GLOBULIN RATIO 1.6 (1.0-2.2); ALKALINE PHOSPHATASE 59 IU/L (42-121); ALT ALANINE AMINOTRANSFERASE 33 IU/L (10-60); AST ASPARTATE AMINOTRANSFERASE 25 IU/L (10-42); BILIRUBIN,TOTAL 0.9 mg/dL (0.2-1.0); BUN - BLOOD UREA NITROGEN 15 mg/dL (6-20); CALCIUM 9.4 mg/dL (8.5-10.3); CARBON DIOXIDE - CO2 26 mmol/L (21-32); CHLORIDE 102 mmol/L (101-111); CHOL/HDL RATIO 3.3 (<5.0); CHOLESTEROL 128 mg/dL; CREATININE 0.9 mg/dL (0.6-1.3); GFR - MDRD 85 (>89); GLUCOSE 159 mg/dL (74-104); HDL CHOLESTEROL 39 mg/dL; LDL CHOLESTEROL,CALCULATED 54 mg/dL; LDL/HDL RATIO 1.4 (<3.6); POTASSIUM 4.3 mmol/L (3.5-4.5); SODIUM 137 mmol/L (135-145); TRIGLYCERIDES 176 mg/dL (48-352); VLDL CHOLESTEROL 35 mg/dL
[2023-01-08 20:49] LABS: ESTIMATED AVERAGE GLUCOSE 163 mg/dL (70-100); HEMOGLOBIN A1c% 7.3 % (4.27-6.07)
== END 2023-01-08 14:28 | disposition home or self-care (01) ==
LOC: LAB.N 14:27
PROVIDERS: ATTEND Family Medicine
DX: I11.0 Hypertensive heart disease with heart failure (principal); I50.1 Left ventricular failure, unspecified; E11.9 Type 2 diabetes mellitus without complications; Z86.79 Personal history of other diseases of the circulatory system; L40.9 Psoriasis, unspecified; I48.91 Unspecified atrial fibrillation
CPT/HCPCS: 36415; 80053; 80061; 83036; 83721; 84443; 85025

== ENCOUNTER 2023-02-01 14:21 | Outpatient (CLI) | payer BC ==
--- NOTE | 2023-02-01 16:55 | XRAY Report ---
PROCEDURE: Hips 2V BILAT INDICATIONS: PAIN IN RIGHT HIP TECHNIQUE: 2 views of the each hip were acquired. COMPARISON: None. FINDINGS: Bones: [Arthroplasty changes are present. The components appear in normal alignment. No periprosthet ic lucency. Mild uniform joint space loss in the right femoral acetabular joint. No significant spurr ing. No acute fractures. There is fixation hardware in the lower lumbosacral spine. Soft tissues: No suspicious soft tissue calcifications or masses. IMPRESSION: 1. Intact left hip prosthesis. 2. Mild right hip degeneration. Reviewed by: Halina Bland MD on 02/01/2023 4:54 PM PDT Approved by: Halina Bland MD on 02/01/2023 4:54 PM PDT Station ID: [id number]
== END 2023-02-01 14:22 | disposition home or self-care (01) ==
LOC: DI 14:21
PROVIDERS: ATTEND Physician Assistant Medical
DX: M16.11 Unilateral primary osteoarthritis, right hip (principal); Z96.642 Presence of left artificial hip joint

== ENCOUNTER 2023-05-29 12:28 | Outpatient (CLI) | payer BC ==
[2023-05-29 19:26] LABS: CALCIUM 9.3 mg/dL (8.5-10.3); CREATININE 0.9 mg/dL (0.6-1.3)
[2023-05-29 20:17] LABS: ESTIMATED AVERAGE GLUCOSE 154 mg/dL (70-100)
== END 2023-05-29 12:29 | disposition home or self-care (01) ==
LOC: LAB.N 12:28
PROVIDERS: ATTEND Physician Assistant Medical
DX: E11.9 Type 2 diabetes mellitus without complications (principal); Z12.5 Encounter for screening for malignant neoplasm of prostate
CPT/HCPCS: 36415; 80048; 83036; 84153

== ENCOUNTER 2023-09-19 15:11 | Outpatient (CLI) | payer BC ==
--- NOTE | 2023-09-19 18:07 | Ultrasound Report ---
PROCEDURE: Arterial Duplex Lwr Ext BL INDICATIONS: ARTERIAL INSUFFICIENCY TECHNIQUE: Color and pulse Doppler interrogation was performed of both lower extremity arterial systems, with im age documentation. COMPARISON: None FINDINGS: Right lower extremity: Common femoral artery: 98 cm/sec, with triphasic flow. Deep femoral artery: 60 cm/sec, with biphasic flow. Proximal superficial femoral artery: 73 cm/sec, with triphasic flow. Mid superficial femoral artery: 116 cm/sec, with triphasic flow. Distal superficial femoral artery: 90 cm/sec, with biphasic flow. Popliteal artery: 50 cm/sec, with biphasic flow. Posterior tibial artery: 68 cm/sec, with biphasic flow. No significant flow is seen in the right mid posterior tibial artery. There is reconstitution distall y with monophasic waveforms. Anterior tibial artery/dorsalis pedis: 97 cm/sec, with biphasic flow. Borden-scale imaging description: Significant plaque is seen throughout. Left lower extremity: Common femoral artery: 77 cm/sec, with biphasic flow. Deep femoral artery: 40 cm/sec, with biphasic flow. Proximal superficial femoral artery: 73 cm/sec, with biphasic flow. Mid superficial femoral artery: 63 cm/sec, with biphasic flow. Distal superficial femoral artery: 115 cm/sec, with biphasic flow. Popliteal artery: 75 cm/sec, with biphasic flow. Posterior tibial artery: 18 cm/sec, with monophasic flow. This is seen at the distal aspect. The mi d aspect has very poor flow Anterior tibial artery/dorsalis pedis: 24 cm/sec, with biphasic flow. Borden-scale imaging description: Significant plaque is seen throughout. IMPRESSION: Significant atherosclerotic plaque is seen on grayscale images throughout. No significant flow is seen in the bilateral mid PT arteries, with reconstitution distally showing mo nophasic waveforms. Upstream arteries bilaterally show likely less than 50% narrowing. Reviewed by: Dae Young MD on 09/19/2023 6:06 PM PDT Approved by: Dae Young MD on 09/19/2023 6:06 PM PDT Station ID: [id number]
== END 2023-09-19 15:12 | disposition home or self-care (01) ==
LOC: DI 15:11
PROVIDERS: ATTEND Physician Assistant Medical
DX: I70.203 Unspecified atherosclerosis of native arteries of extremities, bilateral legs (principal)
CPT/HCPCS: 93925

== ENCOUNTER 2023-09-19 15:14 | Outpatient (CLI) | payer BC ==
--- NOTE | 2023-09-19 18:25 | XRAY Report ---
PROCEDURE: Knee 3V RT INDICATIONS: KNEE PAIN,RIGHT TECHNIQUE: 3 views of the knee(s) were acquired. COMPARISON: None. FINDINGS: Bones: Mild degenerative changes. No acute displaced fracture or dislocation. Soft tissues: Vascular calcifications. Small joint effusion. Suspected prepatellar soft tissue swelli ng IMPRESSION: Mild arthrosis. No acute radiographic abnormality. Small joint effusion. If there is high concern for further derangement, consider MRI evaluation. Reviewed by: Dae Young MD on 09/19/2023 6:24 PM PDT Approved by: Dae Young MD on 09/19/2023 6:24 PM PDT Station ID: [id number]
== END 2023-09-19 15:15 | disposition home or self-care (01) ==
LOC: DI 15:14
PROVIDERS: ATTEND Physician Assistant Medical
DX: M17.11 Unilateral primary osteoarthritis, right knee (principal); M25.461 Effusion, right knee; I70.203 Unspecified atherosclerosis of native arteries of extremities, bilateral legs
CPT/HCPCS: 93925